=== PATIENT | male | born 1960 | race Caucasian/White ===

== ENCOUNTER 2018-11-27 05:16 | Day surgery (SDC) | payer OTHER ==
[~2018-11-27] VITALS: Ht 180.3 cm; Wt 100.7 kg
[2018-11-27] MEDS ORDERED: COREG25 MG PO (05:37)
[2018-11-27] MEDS ORDERED: BAYER CHEWABLE81 MG (05:37)
[2018-11-27] MEDS ORDERED: METFORMIN HCL500 M1 PO (05:38)
[2018-11-27] MEDS ORDERED: LISINOPRIL40 MG (05:38)
[2018-11-27] MEDS ORDERED: OMEPRAZOLE20 M1 PO (05:39)
[2018-11-27] MEDS ORDERED: SYMBICORT 16010.2 GM INH (05:40)
[2018-11-27] MEDS ORDERED: XOPENEX HFA15 GM INH (05:42)
[2018-11-27 05:57] LABS: HEMATOCRIT 46.3 % (42.0-54.0); HEMOGLOBIN 15.9 g/dL (13.5-17.5); MCH 27.6 pg (26.0-34.0); MCHC 34.3 g/dL (31.0-37.0); MCV 80.2 fL (80.0-100.0); MEAN PLATELET VOLUME 10.4 fL (7.4-10.4); RBC 5.77 10x6/uL (4.20-6.10); RDW 13.3 % (11.5-14.5); WBC 9.6 10x3/uL (4.8-10.8)
[2018-11-27 06:11] LABS: CALC OSMOLALITY 288 mosm/kg (275-300); CALCIUM 8.8 mg/dL (8.5-10.1); CARBON DIOXIDE 24.7 mmol/L (21.0-32.0); CHLORIDE - SERUM 105 mmol/L (98-107); GLUCOSE 314 mg/dL (74-106); POTASSIUM - SERUM 4.1 mmol/L (3.5-5.1); SODIUM 139 mmol/L (136-145); UREA NITROGEN 11 mg/dL (7-18); eGFR NON AFRICAN AMERICAN 81 mL/min (90-120)
[2018-11-27] MEDS ORDERED: IBUPROFEN600 MG PO (08:27)
[2018-11-27 08:37] VITALS: BP 144/97; Ht 180.3 cm; Wt 100.7 kg
--- NOTE | 2018-11-27 11:21 | OP ---
PATIENT NAME: ALLEGRA CHARLES MEDICAL RECORD: [id number] :56 LOCATION:[facility] ADMISSION DATE: SURGEON: ALLEGRA HALL DO DATE OF OPERATION: 11/27/2018 PROCEDURE PERFORMED: Excision of lipoma from the right volar wrist. PREOPERATIVE DIAGNOSIS: Lipoma of the right wrist. POSTOPERATIVE DIAGNOSIS: Lipoma of the right wrist. INDICATIONS: Mr. Charles is a 58-year-old inmate who has had this lipoma for quite some time. He is tired of it bothering him with his activities of daily living and is quite painful. He had an MRI, which demonstrated that it was indeed a lipoma and appeared to be nonmalignant. The patient was informed of the risks of this excision including infection, bleeding, damage to nerves and vessels in the area and he signed the consent. SURGEON: Allegra Hall DO DESCRIPTION OF PROCEDURE: The patient was taken to the operative suite, laid in the supine position, given general anesthetic and LMA was placed. The right upper extremity was prepped and draped in sterile fashion. Tourniquet was put on above the drape. Timeout was performed, everyone was in agreement of the correct side, site, patient and procedure. The right upper extremity was exsanguinated with an Esmarch and tourniquet was inflated to 250 mmHg, was up for 5 minutes. Once the tourniquet was inflated and a timeout had been performed and he received his Ancef, the incision was made over the volar ulnar aspect of the wrist right over the lipoma. The lipoma was carefully dissected out and it was taken out of the FCU sheath. The lipoma ended up being about 5 x 3 cm and was removed with good margins. The tourniquet was then let down and then the site was injected with 0.25% Marcaine with epinephrine, approximately 4 mL around the incision site. The skin was then closed with 3-0 Vicryl in inverted interrupted fashion and 5-0 Monocryl ran on the skin. Steri-Strips were then placed on it and an Adaptic, 4 x 4's, Kerlix, and a Coban was lightly wrapped on the wrist. He was awakened and taken to recovery in stable condition. BLOOD LOSS: Minimal. COMPLICATIONS: None. TRANSINT:[id number] Voice Confirmation ID: [id number] DOCUMENT ID: [id number] ALLEGRA HALL DO at 1121 CC: [id number] DICTATION DATE: 11/27/18 1026 PIN CLEANER: 11/27/18 1116 [facility] [place] [id number] [place] [id number]
--- NOTE | 2018-11-27 12:05 | NUR ---
LEFT WRIST PIV DC'D WITH TIP INTACT. DISCHARGE INSTRUCTIONS REVIEWED WITH PATIENT, INSTRUCTIONS GIVEN TO GUARDS TO BE GIVEN TO [facility] NURSE. PATIENT DRESSING IN PERSONAL CLOTHING
== END 2018-11-27 12:12 | disposition home or self-care (01) ==
LOC: D.OPS 05:16
PROVIDERS: Anesthesiology; ATTEND Orthopaedic Surgery
DX: D17.21 Benign lipomatous neoplasm of skin and subcutaneous tissue of right arm (principal)